=== PATIENT | female | born 1995 | race Caucasian/White ===

== ENCOUNTER 2017-06-08 08:50 | Inpatient (IN) | payer BC ==
[2017-06-08] MEDS ORDERED: Lidocaine 1% (PF) 30 ML VIAL SC PRN (21:11)
[2017-06-08] MEDS ORDERED: Ondansetron HCl/PF 4 MG/2 ML Vial IVP PRN (21:11)
[2017-06-08] MEDS ORDERED: Promethazine HCl 25 MG/ML VIAL IM PRN (21:11)
[2017-06-08] MEDS ORDERED: Zolpidem Tartrate 5 MG TAB PO PRN (21:11)
[2017-06-08] MEDS ORDERED: Ibuprofen 800 MG TAB PO PRN (21:11)
[2017-06-08] MEDS ORDERED: Meperidine HCl/PF 25 MG/ML VIAL IM/IV PRN (21:11)
[2017-06-08] MEDS ORDERED: Acetaminophen/Codeine 30-300mg Tablet PO PRN ×2 (21:11)
[2017-06-08] MEDS ORDERED: LR 500 ML/Oxytocin 10 units 500 ML IV SCH ×2 (21:11)
[2017-06-08 21:30] VITALS: BMI 27.8
[2017-06-08] MEDS: Lactated Ringer's 1,000 ML IV SCH (21:45)
[2017-06-08 21:52] LABS: Hemoglobin 13.3 g/dL (12.0-16.0); Mean Corpuscular HGB CONC 34.3 g/dL (32.0-36.0); Mean Corpuscular Hemoglobin 32.5 pg (27.0-31.0); Mean Corpuscular Volume 94.6 fl (81.0-99.0); Mean Platelet Volume 9.5 fL (7.4-10.4); Platelet Count 159 thou/uL (130-400); RBC Distribution Width 11.8 % (11.5-14.5); Red Blood Cell (RBC) Count 4.08 mill/uL (4.20-5.40)
[2017-06-08 22:34] LABS: Syphilis Antibody Nonreactive (Nonreactive); Syphilis Antibody Index 0.04 S/CO (<1.00 Non-Reactive)
[2017-06-08 23:00] LABS: HBSAg Index 0.15 S/CO (0-0.99); Hep B Surf Ag Non-Reactive S/CO (NonReactive)
[2017-06-09] MEDS ORDERED: Penicillin G Potassium 5 MILL.UNITS in Sodium Chloride 0.9% 100 ML IVPB SCH (05:00)
[2017-06-09] MEDS: Lactated Ringer's 1,000 ML IV SCH ×2 (06:42→11:21)
--- NOTE | 2017-06-09 07:51 | PDOC.LDHP ---
Labor and Delivery H&P Chief complaint: scheduled induction HPI: Pt is a 22 yo G1 @ 38 weeks here for scheduled IOL for IUGR. Baby w noted IUGR @ 33 weeks, neg work up for IUGR. Current gestational age (weeks): 38 Due date: 06/23/17 Dating criteria: last menstrual period, first trimester ultrasound Grav: 1 Para: 0 OB History Details: IUGR noted at 33 weeks, declined genetic screening, neg labs work up and no other US abnormalities noted Current complications: IUGR Abnormal US findings: Yes (IUGR 3%) Past Medical History: asthma, allergies Current medications: pre- vitamins, other (flonase, zyrtec) Previous surgical history: none Allergies/Adverse Reactions: Allergies Allergy/AdvReac Type Severity Reaction Status Date / Time No Known Drug Allergies Allergy Verified 06/08/17 21:22 Social history: tobacco use (history of use until 2015) - Physical Exam Vital signs reviewed and normal: yes General: resting Heart: RRR Lungs: nonlabored breathing Abdomen: gravid Extremeties: no edema FHT: category 1 - OB Labs Blood type: A RH: positive Antibody Screen: negative HIV: negative RPR: negative HEPSAg: negative 1 hour GCT: negative GBS: positive Rubella: immune - Assessment L&D Assessment: medically indicated induction - Plan Plan: admit to L&D, cervical ripening, GBS antibiotic prophylaxis, informed consent obtained, anesthesia consult for pain management -: A/P: 22yo G1@ 38 weeks w IUGR followed w close antepartum surveillance since 33 weeks here for IOL. S/P Cook balloon placement and low dose pitocin overnight. Plan to remove balloon, AROM and continue pitocin. FHT reasuring.
[2017-06-09] MEDS: Penicillin G 2.5 MILL.units 2.5 MILL.UNITS in Premix Bag 1 BAG IVPB SCH ×3 (09:12→19:45)
[2017-06-09] MEDS ORDERED: Bupivacaine 0.5% 20 ML, Fentanyl 400 MCG in Sodium Chloride 0.9% 72 ML EPIDURAL SCH (10:45)
[2017-06-09] MEDS ORDERED: Eucerin (Mineral Oil/Petrolatum,White) 30 gm Jar TOP PRN (11:29)
[2017-06-09] MEDS ORDERED: Promethazine HCl 25 MG/ML VIAL IM PRN ×2 (11:29→19:43)
[2017-06-09] MEDS ORDERED: Acetaminophen 325 MG TAB PO PRN (11:29)
[2017-06-09] MEDS ORDERED: Naloxone HCl 0.4 mg/ml Vial IVP PRN ×2 (11:29)
[2017-06-09] MEDS ORDERED: ePHEDrine/0.9% NaCl/PF SYRINGE 50 mg/10 ml SLOW IVP PRN (11:29)
[2017-06-09] MEDS ORDERED: diphenhydrAMINE 50 MG/ML VIAL IVP PRN (11:29)
[2017-06-09] MEDS ORDERED: Lactated Ringer's 500 ML IV PRN (11:29)
[2017-06-09] MEDS ORDERED: Ondansetron HCl/PF 4 MG/2 ML Vial IVP PRN ×2 (11:29→19:43)
[2017-06-09] MEDS ORDERED: Communication Order-Pharmacy FS SCH (11:30)
[2017-06-09] MEDS ORDERED: Fentanyl 4mcg/Marcaine 0.1% Cassette 100 ML EPIDURAL SCH (11:30)
--- NOTE | 2017-06-09 12:31 | PDOC.LDPN ---
Labor & Delivery Progress Note - Subjective Subjective: comfortable - Objective Vital signs reviewed and normal: yes General: resting Dilation: 8 Effacement: 90% Station: 3+ FHT: category 1 [place] contractions every: 4 AROM: clear fluid - Assessment (1) 38 weeks gestation of Code(s): Z3A.38 - 38 WEEKS GESTATION OF Current Visit: Yes Status : Acute (2) Intrauterine growth restriction (IUGR) affecting care of mother Code(s): O36.5990 - MATERN CARE FOR OTH OR SUSP POOR FETL GRTH, UNSP TRI, UNSP Current Visit: Yes Status: Acute Qualifiers: Fetus number: single or unspecified fetus Plan: continue plan of care
[2017-06-09] MEDS: LR / Pitocin 40 units/1000 ml 1,000 ML IV PRN ×2 (16:00→17:44)
[2017-06-09 16:17] LABS: Actual Bicarbonate (HCO3a) 25.8 mEq/L (22-26)
--- NOTE | 2017-06-09 16:30 | PDOC.OPDEL ---
OB Operative/Delivery Note Delivery Dr/Surgeon: Eduin Pre-Delivery Diagnosis: medically indicated induction (IUGR) Procedure/Post Delivery Dx: operative vaginal delivery (VAVD) Weeks gestation: 38 - Findings A Sex: male - Additional Findings/Plan Placenta delivered: spontaneous Repaired Obstetrical Laceration: 1st degree Estimated blood loss: 300ml Compilations/Other Findings: VAVD for NRFHT, bradycardia. Anshul present. Pull w 2 contractions, no pop offs. Post delivery plan: routine recovery
[2017-06-09] MEDS ORDERED: Preparation H Ointment 28 GM TUBE PR PRN (19:43)
[2017-06-09] MEDS ORDERED: Bisacodyl 10 MG SUPP PR PRN (19:43)
[2017-06-09] MEDS ORDERED: LR / Pitocin 40 units/1000 ml 1,000 ML IV SCH (19:43)
[2017-06-09] MEDS ORDERED: diphenhydrAMINE 25 MG CAP PO PRN (19:43)
[2017-06-09] MEDS ORDERED: Benzocaine/Menthol 20-0.5% 60 ML CAN TOP PRN (19:43)
[2017-06-09] MEDS ORDERED: Milk Of Magnesia 30 ML UDCUP PO PRN (19:43)
[2017-06-09] MEDS ORDERED: Acetaminophen/Codeine 30-300mg Tablet PO PRN ×2 (19:43)
[2017-06-09] MEDS: Ferrous Sulfate 325 MG TAB PO SCH (23:58)
[2017-06-09] MEDS: Ibuprofen 800 MG TAB PO SCH (23:58)
[2017-06-09] MEDS: Docusate Calcium (SURFAK) 240 MG CAP PO SCH (23:58)
[2017-06-10] MEDS: Docusate Calcium (SURFAK) 240 MG CAP PO SCH (09:27)
[2017-06-10] MEDS: Ferrous Sulfate 325 MG TAB PO SCH (09:27)
[2017-06-10] MEDS: Prenatal Vitamin 1 TAB PO SCH (09:27)
[2017-06-10] MEDS: Ibuprofen 800 MG TAB PO SCH ×2 (09:28→15:51)
--- NOTE | 2017-06-10 13:14 | PDOC.PP ---
Post Progress Note Post Day #: 1 Subjective: mom visiting baby in NICU, min lochia, pumping PO intake tolerated: yes Flatus: yes Ambulation: yes Vital Signs (12 hours) Temp Pulse Resp BP 06/10/17 12:01 98.2 F 71 20 106/56 L 06/10/17 08:18 98.4 F 85 20 106/55 L 06/10/17 08:00 98.4 F 85 20 06/10/17 04:45 97.9 F 85 18 Weight Weight 162 lb - Physical Examination General: NAD Respiratory: non-labored breathing Abdominal: no distention Fundus firm & at: below umb Extremities: negative homans (B) Skin: CS incision dry & intact, no rash Psychiatric: A&Ox3, normal affect Result Diagrams: 06/08/17 21:43 Additional Labs: Post Labs Blood Type A POSITIVE 06/08/17 21:43 Hep Bs Antigen Non-Reactive S/CO (NonReactive) 06/08/17 21:43 (1) 38 weeks gestation of Code(s): Z3A.38 - 38 WEEKS GESTATION OF Status: Acute (2) Intrauterine growth restriction (IUGR) affecting care of mother Code(s): O36.5990 - MATERN CARE FOR OTH OR SUSP POOR FETL GRTH, UNSP TRI, UNSP Status: Acute Qualifiers: Fetus number: single or unspecified fetus (3) Vaginal delivery Code(s): O80 - ENCOUNTER FOR FULL-TERM UNCOMPLICATED DELIVERY Status: Acute - Assessment/Plan PPD1 doing well, LC pending, baby transitioning in NICU still w O2 support.
[2017-06-11 01:08] VITALS: TEMP 97.8
[2017-06-11] MEDS: Ibuprofen 800 MG TAB PO SCH ×3 (01:09→14:57)
[2017-06-11] MEDS: Docusate Calcium (SURFAK) 240 MG CAP PO SCH ×2 (01:09→09:21)
[2017-06-11] MEDS: Ferrous Sulfate 325 MG TAB PO SCH ×2 (01:09→09:21)
[2017-06-11] MEDS: Prenatal Vitamin 1 TAB PO SCH (08:51)
[2017-06-11 09:24] VITALS: BP 110/70
--- NOTE | 2017-06-11 11:03 | PDOC.PP ---
Post Progress Note Post Day #: 2 Subjective: baby in NICU but lives close and would like DC home PO intake tolerated: yes Flatus: yes Ambulation: yes Vital Signs (12 hours) Temp Pulse Resp BP 06/11/17 08:00 97.8 F 82 18 110/70 Weight Weight 162 lb - Physical Examination General: NAD Respiratory: non-labored breathing Abdominal: no distention Fundus firm & at: below umb Extremities: negative homans (B) Skin: no rash Psychiatric: A&Ox3, normal affect Result Diagrams: 06/08/17 21:43 Additional Labs: Post Labs Blood Type A POSITIVE 06/08/17 21:43 Hep Bs Antigen Non-Reactive S/CO (NonReactive) 06/08/17 21:43 (1) 38 weeks gestation of Code(s): Z3A.38 - 38 WEEKS GESTATION OF Status: Acute (2) Intrauterine growth restriction (IUGR) affecting care of mother Code(s): O36.5990 - MATERN CARE FOR OTH OR SUSP POOR FETL GRTH, UNSP TRI, UNSP Status: Acute Qualifiers: Fetus number: single or unspecified fetus (3) Vaginal delivery Code(s): O80 - ENCOUNTER FOR FULL-TERM UNCOMPLICATED DELIVERY Status: Acute - Assessment/Plan PPD2, doing well, DC home today
== END 2017-06-11 14:10 | disposition home or self-care (01) | DRG 775 ==
LOC: L&D 21:00 → 3SW 06-09 21:03
PROVIDERS: ADMIT Obstetrics & Gynecology; ATTEND Obstetrics & Gynecology
PROC: 0U7C7ZZ Dilation of Cervix, Via Natural or Artificial Opening (ICD-10-PCS; principal; 2017-06-09)
PROC: 10D07Z6 Extraction of Products of Conception, Vacuum, Via Natural or Artificial Opening (ICD-10-PCS; 2017-06-09)
PROC: 3E033VJ Introduction of Other Hormone into Peripheral Vein, Percutaneous Approach (ICD-10-PCS; 2017-06-09)
PROC: 0HQ9XZZ Repair Perineum Skin, External Approach (ICD-10-PCS; 2017-06-09)
DX: O36.5930 Maternal care for other known or suspected poor fetal growth, third trimester, not applicable or unspecified (principal); J45.909 Unspecified asthma, uncomplicated; Z37.0 Single live birth; Z3A.38 38 weeks gestation of pregnancy; O99.52 Diseases of the respiratory system complicating childbirth; O99.824 Streptococcus B carrier state complicating childbirth; O70.0 First degree perineal laceration during delivery; O76 Abnormality in fetal heart rate and rhythm complicating labor and delivery
CPT/HCPCS: 36415; 51702; 82805; 85027; 86780; 86850; 86900; 86901; 87340; 88307; C1726; J2001; J2540; J3010; J3490; J7050; J7120